=== PATIENT | female | born 1940 | race Caucasian/White ===

== ENCOUNTER 2016-07-28 13:38 | Inpatient (IN) | payer OTHER ==
[~2016-07-28] VITALS: Ht 166.4 cm; Wt 122.4 kg
[~2016-07-28 13:38] MED LIST: ACTOPLUS MET1 TABLET PO; BENICAR40 MG PO; CALCIUM 600 MG1 EAC1 PO; CELEBREX200 MG PO; CENTRUM SILVER1 EAC3 PO; CIPRO500 MG PO; FISH OIL 1,2001 EAC1 PO; FLAGYL500 MG PO; FLEXERIL10 MG PO; HYDROCHLOROTHIA25 MG PO; HYDROCODON-ACE1 EAC7 PO; IRON325 M1 PO; LASIX20 MG PO; LOVENOX40 MG/0.4 SC; NAPROXEN500 MG PO; NEXIUM40 MG PO; PRILOSEC40 MG PO; SENNA-TIME S T1 EACH PO; SIMVASTATIN40 MG PO; VESICARE10 MG PO; VICODIN 5-3001 EACH PO; VITAMIN B-125000 MCG SL; VITAMIN D35000 UNIT PO; VITAMIN D400 UNI1 PO; ZOFRAN ODT4 MG PO
[2016-07-28 14:28] LABS: HEMATOCRIT 37.8 % (36.0-46.0); MCV 90.6 FL (83-99); MEAN PLAT.VOLUME 10.7 uM^3 (9.5-12.4); PLATELET COUNT 189 K/uL (156-360); RBC DIS.WIDTH-SD 48.3 % (39-53); RED BLOOD COUNT 4.17 M/uL (3.80-5.20); WHITE BLOOD COUNT 7.4 K/uL (4.1-10.2)
[2016-07-28 14:46] LABS: CHLORIDE 108 mEq/L (99-109); POTASSIUM 4.2 mEq/L (3.7-5.4); SODIUM 141 mEq/L (136-147)
[2016-07-28 14:47] LABS: GLUCOSE 102 mg/dL (70-99)
[2016-07-28 14:49] LABS: ANION GAP 16 MEQ/L (2-14)
[2016-07-28 14:51] LABS: GFR ESTIMATE (CALCULATED) 47 mL/min/
[2016-07-28 14:52] LABS: UREA NITROGEN (BUN) 17 mg/dL (9-23)
[2016-07-28] MEDS ORDERED: ERGOCALCIF50000 UNIT PO (18:04)
[2016-07-28 22:47] VITALS: BP 85/55
[2016-07-28 23:20] VITALS: BP 105/68
[2016-07-29] VITALS (9 sets, daily range): BP systolic 89–127; BP diastolic 44–63
[2016-07-29 06:06] LABS: HEMATOCRIT 33.8 % (36.0-46.0); MCHC 31.4 G/DL (30.0-36.0); MCV 92.3 FL (83-99); RBC DIS.WIDTH-CV 15.5 % (11.8-14.6); RBC DIS.WIDTH-SD 52.5 % (39-53); RED BLOOD COUNT 3.66 M/uL (3.80-5.20); WHITE BLOOD COUNT 5.9 K/uL (4.1-10.2)
[2016-07-29 06:27] LABS: MEAN PLAT.VOLUME 11.3 uM^3 (9.5-12.4); PLATELET COUNT 186 K/uL (156-360)
[2016-07-29 06:48] LABS: ANION GAP 8 MEQ/L (2-14); CHLORIDE 106 MEQ/L (99-109); POTASSIUM 4.6 MEQ/L (3.7-5.4); SAMPLE HEMOLYSIS CHECK 0; SAMPLE ICTERIC CHECK 0; SAMPLE LIPEMIA CHECK 0; SODIUM 138 MEQ/L (136-147); TOTAL BILIRUBIN 0.5 MG/DL (0.0-1.0)
[2016-07-29 06:53] LABS: ALKALINE PHOSPHATASE 78 IU/L (3-129); GFR ESTIMATE (CALCULATED) 42 mL/min/; GLUCOSE 101 mg/dL (70-99); UREA NITROGEN (BUN) 19 mg/dL (9-23)
[2016-07-29 10:46] LABS: TROP-I INTERPRETATION NEGATIVE; TROPONIN-I 0.03 ng/mL (0.0-0.30)
[2016-07-29 16:34] LABS: ADD MIUA? NO; BILIRUBIN NEGATIVE; BLOOD NEGATIVE; COLOR YELLOW ((YELLOW)); GLUCOSE (STRIP) NEGATIVE; KETONES 5; LEUKOCYTES NEGATIVE; NITRITE NEGATIVE; PROTEIN (STRIP) NEGATIVE; SPECIFIC GRAVITY 1.008 (1.000-1.030); UCUL ADDED? NO; UROBILINOGEN 0.2 MG/DL (0.2-1.0)
[2016-07-29 18:22] LABS: POINT-OF-CARE METER ID UU14162513
[2016-07-29 22:18] LABS: POINT-OF-CARE METER ID UU14162508
[2016-07-30 03:56] VITALS: BP 103/53
[2016-07-30 08:20] VITALS: BP 99/52
[2016-07-30 10:02] LABS: EOSINOPHIL (%) 3.3 % (0-5); EOSINOPHIL COUNT 0.2 K/uL (0-0.3); HEMATOCRIT 32.9 % (36.0-46.0); IMMATURE GRANULOCYTE (%) 0.1 % (0.0-0.7); LYMPHOCYTE COUNT 1.4 K/uL (1.0-2.8); MCH 28.2 PG (29.0-34.0); MCHC 30.4 G/DL (30.0-36.0); MCV 92.7 FL (83-99); MONOCYTE (%) 9.9 % (3-12); MONOCYTE COUNT 0.7 K/uL (0-0.8); NEUTROPHIL (%) 67.6 % (45-76); NEUTROPHIL COUNT 4.9 K/uL (1.8-6.4); PLATELET COUNT 182 K/uL (156-360); RBC DIS.WIDTH-CV 15.5 % (11.8-14.6); RBC DIS.WIDTH-SD 53.2 % (39-53); RED BLOOD COUNT 3.55 M/uL (3.80-5.20); WHITE BLOOD COUNT 7.3 K/uL (4.1-10.2)
[2016-07-30 11:08] LABS: ANION GAP 6 MEQ/L (2-14); CHLORIDE 103 MEQ/L (99-109); POTASSIUM 4.9 MEQ/L (3.7-5.4); SAMPLE HEMOLYSIS CHECK 0; SAMPLE ICTERIC CHECK 0; SAMPLE LIPEMIA CHECK 0; SODIUM 133 MEQ/L (136-147)
[2016-07-30 11:15] LABS: GFR ESTIMATE (CALCULATED) 27 mL/min/; GLUCOSE 118 mg/dL (70-99); UREA NITROGEN (BUN) 25 mg/dL (9-23)
[2016-07-30 11:51] VITALS: BP 129/55
[2016-07-30 16:50] VITALS: BP 98/64
[2016-07-30 23:18] VITALS: BP 101/53
[2016-07-31 03:48] VITALS: BP 115/62
[2016-07-31 07:03] LABS: EOSINOPHIL (%) 4.8 % (0-5); EOSINOPHIL COUNT 0.3 K/uL (0-0.3); HEMATOCRIT 28.7 % (36.0-46.0); IMMATURE GRANULOCYTE (%) 0.2 % (0.0-0.7); LYMPHOCYTE COUNT 1.6 K/uL (1.0-2.8); MCH 29.3 PG (29.0-34.0); MCHC 32.1 G/DL (30.0-36.0); MCV 91.4 FL (83-99); MEAN PLAT.VOLUME 11.3 uM^3 (9.5-12.4); MONOCYTE (%) 11.8 % (3-12); MONOCYTE COUNT 0.7 K/uL (0-0.8); NEUTROPHIL (%) 56.8 % (45-76); NEUTROPHIL COUNT 3.6 K/uL (1.8-6.4); PLATELET COUNT 152 K/uL (156-360); RBC DIS.WIDTH-CV 15.5 % (11.8-14.6); RBC DIS.WIDTH-SD 52.1 % (39-53); RED BLOOD COUNT 3.14 M/uL (3.80-5.20); WHITE BLOOD COUNT 6.3 K/uL (4.1-10.2)
[2016-07-31 07:26] LABS: ANION GAP 8 MEQ/L (2-14); CHLORIDE 104 MEQ/L (99-109); GFR ESTIMATE (CALCULATED) 31 mL/min/; GLUCOSE 90 mg/dL (70-99); POTASSIUM 4.5 MEQ/L (3.7-5.4); SAMPLE HEMOLYSIS CHECK 0; SAMPLE ICTERIC CHECK 0; SAMPLE LIPEMIA CHECK 0; SODIUM 135 MEQ/L (136-147); UREA NITROGEN (BUN) 28 mg/dL (9-23)
[2016-07-31 08:19] VITALS: BP 135/67
[2016-07-31 12:14] VITALS: BP 120/57
[2016-07-31 14:50] VITALS: BP 126/58
[2016-07-31 17:48] LABS: UR CREATININE CONCENTRATION 27.6 MG/DL
[2016-08-01] VITALS: BP 108/53
[2016-08-01 07:40] LABS: MEAN PLAT.VOLUME 11.1 uM^3 (9.5-12.4); PLATELET COUNT 174 K/uL (156-360)
[2016-08-01 07:51] LABS: DELETE MACHINE DIFF? YES
[2016-08-01 08:14] VITALS: BP 102/52
[2016-08-01 08:16] LABS: ANION GAP 6 MEQ/L (2-14); CHLORIDE 106 MEQ/L (99-109); GFR ESTIMATE (CALCULATED) 42 mL/min/; POTASSIUM 4.6 MEQ/L (3.7-5.4); SAMPLE HEMOLYSIS CHECK 0; SAMPLE ICTERIC CHECK 0; SAMPLE LIPEMIA CHECK 0; SODIUM 136 MEQ/L (136-147); UREA NITROGEN (BUN) 27 mg/dL (9-23)
[2016-08-01 08:17] LABS: GLUCOSE 117 mg/dL (70-99)
[2016-08-01 08:55] LABS: ABS NEUTROPHIL COUNT 3.38; ANISOCYTOSIS 1+; EOSINOPHIL ABS CT 0.61; HEMATOCRIT 30.8 % (36.0-46.0); HYPOCHROMASIA 2+; MACROCYTES OCC; MCH 29.7 PG (29.0-34.0); MCHC 32.5 G/DL (30.0-36.0); MCV 91.4 FL (83-99); MICROCYTOSIS OCC; PLAT.SUFFICIENCY ADEQUATE; RBC DIS.WIDTH-CV 15.4 % (11.8-14.6); RBC DIS.WIDTH-SD 51.6 % (39-53); RED BLOOD COUNT 3.37 M/uL (3.80-5.20); SPHEROCYTES OCC; USER ID TLW; WHITE BLOOD COUNT 6.1 K/uL (4.1-10.2)
[2016-08-01 15:36] VITALS: BP 117/53
[2016-08-01 22:46] VITALS: BP 111/58
[2016-08-02 07:25] VITALS: BP 165/75
[2016-08-02 07:38] LABS: EOSINOPHIL (%) 9.1 % (0-5); EOSINOPHIL COUNT 0.5 K/uL (0-0.3); HEMATOCRIT 31.2 % (36.0-46.0); IMMATURE GRANULOCYTE (%) 0.2 % (0.0-0.7); LYMPHOCYTE COUNT 1.4 K/uL (1.0-2.8); MCH 29.7 PG (29.0-34.0); MCHC 32.1 G/DL (30.0-36.0); MCV 92.6 FL (83-99); MEAN PLAT.VOLUME 10.9 uM^3 (9.5-12.4); MONOCYTE (%) 10.3 % (3-12); MONOCYTE COUNT 0.6 K/uL (0-0.8); NEUTROPHIL (%) 55.3 % (45-76); NEUTROPHIL COUNT 3.2 K/uL (1.8-6.4); PLATELET COUNT 197 K/uL (156-360); RBC DIS.WIDTH-CV 15.4 % (11.8-14.6); RBC DIS.WIDTH-SD 52.6 % (39-53); RED BLOOD COUNT 3.37 M/uL (3.80-5.20); WHITE BLOOD COUNT 5.7 K/uL (4.1-10.2)
[2016-08-02 08:04] LABS: ANION GAP 8 MEQ/L (2-14); CHLORIDE 107 MEQ/L (99-109); GFR ESTIMATE (CALCULATED) 51 mL/min/; GLUCOSE 90 mg/dL (70-99); POTASSIUM 4.9 MEQ/L (3.7-5.4); SAMPLE HEMOLYSIS CHECK 0; SAMPLE ICTERIC CHECK 0; SAMPLE LIPEMIA CHECK 0; SODIUM 140 MEQ/L (136-147); UREA NITROGEN (BUN) 21 mg/dL (9-23)
[2016-08-02 11:49] VITALS: BP 118/55
[2016-08-02] MEDS ORDERED: TRAMADOL HCL50 MG PO ×2 (13:03→14:12)
[2016-08-02] MEDS ORDERED: NOVOLOG PE100 UNITS/ SQ (15:41)
[2016-08-02] MEDS ORDERED: LOVENOX40 MG/0.4 SC (15:42)
[2016-08-02] MEDS ORDERED: PRAVACHOL80 MG PO (15:43)
[2016-08-02] MEDS ORDERED: COZAAR100 MG PO (15:44)
[2016-08-02] MEDS ORDERED: GLUCOPHAGE1000 MG PO (15:45)
[2016-08-02] MEDS ORDERED: DILAUDID1 MG/ML IV (15:47)
[2016-08-02] MEDS ORDERED: FLEXERIL10 MG PO (15:51)
[2016-08-02] MEDS ORDERED: BENADRYL25 MG PO (15:52)
[2016-08-02] MEDS ORDERED: MILK OF MAGN PO (15:53)
[2016-08-02] MEDS ORDERED: TYLENOL REGULA325 MG PO (15:54)
[2016-08-02] MEDS ORDERED: ZOFRAN4 MG IV (15:55)
== END 2016-08-02 13:06 | DRG 312 ==
LOC: EME → EDBD 13:38 → 5WEST 21:13 → EDOF 21:13 → 5WEST 22:12 → 2EAST 07-29 14:16 → 5WEST 07-29 14:16 → 2EAST 07-29 19:25
PROVIDERS: Emergency Medicine; Internal Medicine; Physician Assistant Medical
PROC: 0PSFXZZ Reposition Right Humeral Shaft, External Approach (ICD-10-PCS; principal; 2016-07-28)
DX: I95.2 Hypotension due to drugs (principal); T40.605A Adverse effect of unspecified narcotics, initial encounter; S42.341A Displaced spiral fracture of shaft of humerus, right arm, initial encounter for closed fracture; J98.11 Atelectasis; I50.30 Unspecified diastolic (congestive) heart failure; E87.2 Acidosis; Z68.41 Body mass index [BMI] 40.0-44.9, adult; R09.02 Hypoxemia; W01.0XXA Fall on same level from slipping, tripping and stumbling without subsequent striking against object, initial encounter; I10 Essential (primary) hypertension; E78.5 Hyperlipidemia, unspecified; E11.40 Type 2 diabetes mellitus with diabetic neuropathy, unspecified; Z96.652 Presence of left artificial knee joint; E66.01 Morbid (severe) obesity due to excess calories; Z60.2 Problems related to living alone; Y92.018 Other place in single-family (private) house as the place of occurrence of the external cause; Z88.5 Allergy status to narcotic agent; Z87.891 Personal history of nicotine dependence
CPT/HCPCS: 71010; 71275; 73060; 80048; 80053; 80202; 81003; 82272; 82570; 82948; 83605; 83735; 83880; 83935; 84300; 84484; 85025; 85027; 85379; 87040; 87801; 89190; 93005; 93306; 93971; 94799; 97530 GP; 99281; 99285; G0378; J1170; J1650; J1815; J1940; J2270; J2405; J3010; J3370; J7030; J7040; J7050

== ENCOUNTER 2016-08-02 11:51 | Inpatient (IN) | payer OTHER ==
[~2016-08-02] VITALS: Ht 165.1 cm; Wt 122.8 kg
[~2016-08-02 11:51] MED LIST changes: +ERGOCALCIF50000 UNIT PO
[2016-08-02] MEDS ORDERED: TRAMADOL HCL50 MG PO ×2 (13:03→14:12)
[2016-08-02 15:19] VITALS: BP 130/62
[2016-08-02] MEDS ORDERED: NOVOLOG PE100 UNITS/ SQ (15:41)
[2016-08-02] MEDS ORDERED: LOVENOX40 MG/0.4 SC (15:42)
[2016-08-02] MEDS ORDERED: PRAVACHOL80 MG PO (15:43)
[2016-08-02] MEDS ORDERED: COZAAR100 MG PO (15:44)
[2016-08-02] MEDS ORDERED: GLUCOPHAGE1000 MG PO (15:45)
[2016-08-02] MEDS ORDERED: DILAUDID1 MG/ML IV (15:47)
[2016-08-02] MEDS ORDERED: FLEXERIL10 MG PO (15:51)
[2016-08-02] MEDS ORDERED: BENADRYL25 MG PO (15:52)
[2016-08-02] MEDS ORDERED: MILK OF MAGN PO (15:53)
[2016-08-02] MEDS ORDERED: TYLENOL REGULA325 MG PO (15:54)
[2016-08-02] MEDS ORDERED: ZOFRAN4 MG IV (15:55)
[2016-08-02 16:01] LABS: HEMATOCRIT 32.9 % (36.0-46.0); MCH 28.7 PG (29.0-34.0); MCV 92.7 FL (83-99); MEAN PLAT.VOLUME 10.2 uM^3 (9.5-12.4); PLATELET COUNT 208 K/uL (156-360); RBC DIS.WIDTH-CV 15.3 % (11.8-14.6); RBC DIS.WIDTH-SD 52.1 % (39-53); RED BLOOD COUNT 3.55 M/uL (3.80-5.20); WHITE BLOOD COUNT 5.6 K/uL (4.1-10.2)
[2016-08-02 16:33] LABS: ALKALINE PHOSPHATASE 75 IU/L (3-129); ANION GAP 6 MEQ/L (2-14); CHLORIDE 104 MEQ/L (99-109); GFR ESTIMATE (CALCULATED) 51 mL/min/; GLUCOSE 84 mg/dL (70-99); POTASSIUM 4.8 MEQ/L (3.7-5.4); SAMPLE HEMOLYSIS CHECK 0; SAMPLE ICTERIC CHECK 0; SAMPLE LIPEMIA CHECK 0; SODIUM 137 MEQ/L (136-147); TOTAL BILIRUBIN 0.4 MG/DL (0.0-1.0); UREA NITROGEN (BUN) 21 mg/dL (9-23)
[2016-08-02 16:44] LABS: POINT-OF-CARE METER ID UU13113720
[2016-08-02 20:52] LABS: POINT-OF-CARE METER ID UU13113720; POINT-OF-CARE USER ID 610211320
[2016-08-03 00:10] VITALS: BP 140/62
[2016-08-03 05:38] VITALS: BP 144/70
[2016-08-03 07:15] LABS: POINT-OF-CARE METER ID UU13113720; POINT-OF-CARE USER ID AHSSSJB31
[2016-08-03 11:40] LABS: POINT-OF-CARE METER ID UU13113720; POINT-OF-CARE USER ID AHSSSJB31
[2016-08-03 16:00] VITALS: BP 142/87
[2016-08-03 16:36] LABS: POINT-OF-CARE METER ID UU13113720
[2016-08-03 17:24] LABS: POINT-OF-CARE METER ID UU13113720
[2016-08-03 21:31] LABS: POINT-OF-CARE METER ID UU13113720
[2016-08-04 05:21] VITALS: BP 100/52
[2016-08-04 07:40] LABS: POINT-OF-CARE METER ID UU13113720
[2016-08-04 09:03] VITALS: BP 131/60
[2016-08-04 12:01] LABS: POINT-OF-CARE METER ID UU13113720
[2016-08-04 13:59] LABS: EOSINOPHIL (%) 7.1 % (0-5); EOSINOPHIL COUNT 0.5 K/uL (0-0.3); IMMATURE GRANULOCYTE (%) 0.3 % (0.0-0.7); LYMPHOCYTE COUNT 1.3 K/uL (1.0-2.8); MCH 28.3 PG (29.0-34.0); MCHC 30.9 G/DL (30.0-36.0); MCV 91.4 FL (83-99); MEAN PLAT.VOLUME 10.2 uM^3 (9.5-12.4); MONOCYTE (%) 8.3 % (3-12); MONOCYTE COUNT 0.6 K/uL (0-0.8); NEUTROPHIL (%) 64.9 % (45-76); NEUTROPHIL COUNT 4.3 K/uL (1.8-6.4); PLATELET COUNT 235 K/uL (156-360); RBC DIS.WIDTH-CV 15.4 % (11.8-14.6); RBC DIS.WIDTH-SD 52.3 % (39-53); RED BLOOD COUNT 3.61 M/uL (3.80-5.20); WHITE BLOOD COUNT 6.7 K/uL (4.1-10.2)
[2016-08-04 15:00] VITALS: BP 138/77
[2016-08-04 17:06] LABS: POINT-OF-CARE METER ID UU13113720
[2016-08-04 21:12] LABS: POINT-OF-CARE METER ID UU14174215; POINT-OF-CARE USER ID 610211320
[2016-08-05 05:47] VITALS: BP 139/65
[2016-08-05 08:13] LABS: POINT-OF-CARE METER ID UU13113720; POINT-OF-CARE USER ID AHSSSJB31
[2016-08-05 09:04] VITALS: BP 133/63
[2016-08-05 11:53] LABS: POINT-OF-CARE METER ID UU13113720; POINT-OF-CARE USER ID AHSSSJB31
[2016-08-05 14:56] LABS: Estimated Average Glucose 120 mg/dL (70-123); HEMOGLOBIN A1c (GLYCOHEMOGLOB) 5.8 % HGB (Below 5.7)
[2016-08-05 15:29] VITALS: BP 124/98
[2016-08-05 16:15] LABS: POINT-OF-CARE METER ID UU13113720
[2016-08-05 21:52] LABS: POINT-OF-CARE METER ID UU13113720
[2016-08-06 05:17] VITALS: BP 100/55
[2016-08-06 06:55] LABS: POINT-OF-CARE METER ID UU14174215; POINT-OF-CARE USER ID ENVGAF
[2016-08-06 11:31] LABS: POINT-OF-CARE METER ID UU14174215
[2016-08-06 16:28] VITALS: BP 151/58
[2016-08-06 17:21] LABS: POINT-OF-CARE METER ID UU14174215
[2016-08-06 21:24] LABS: POINT-OF-CARE METER ID UU14174215
[2016-08-07 04:53] VITALS: BP 101/53
[2016-08-07 06:48] LABS: POINT-OF-CARE METER ID UU13113720; POINT-OF-CARE USER ID ENVGAF
[2016-08-07 11:35] LABS: POINT-OF-CARE METER ID UU13113720
[2016-08-07 16:26] LABS: POINT-OF-CARE METER ID UU14174215
[2016-08-07 17:08] VITALS: BP 129/65
[2016-08-07 20:26] LABS: POINT-OF-CARE METER ID UU13113720
[2016-08-08 04:50] VITALS: BP 118/59
[2016-08-08 07:59] LABS: POINT-OF-CARE METER ID UU14174215
[2016-08-08 11:47] LABS: POINT-OF-CARE METER ID UU13113720; POINT-OF-CARE USER ID AHSSSJB31
[2016-08-08 15:57] VITALS: BP 178/80
[2016-08-08 16:58] LABS: POINT-OF-CARE METER ID UU13113720
[2016-08-08 20:53] LABS: POINT-OF-CARE METER ID UU13113720
[2016-08-09 04:53] VITALS: BP 121/58
[2016-08-09 07:30] LABS: POINT-OF-CARE METER ID UU13113720; POINT-OF-CARE USER ID AHSSSJB31
[2016-08-09 16:22] VITALS: BP 143/80
[2016-08-10 05:27] VITALS: BP 117/65
[2016-08-10 06:01] LABS: POINT-OF-CARE METER ID UU13113720; POINT-OF-CARE USER ID 610211320
[2016-08-10 15:01] VITALS: BP 122/88
[2016-08-11 05:11] VITALS: BP 118/60
[2016-08-11 05:36] LABS: HEMATOCRIT 31.9 % (36.0-46.0); MCH 29.2 PG (29.0-34.0); MCHC 31.3 G/DL (30.0-36.0); MEAN PLAT.VOLUME 10.3 uM^3 (9.5-12.4); PLATELET COUNT 204 K/uL (156-360); RBC DIS.WIDTH-CV 15.5 % (11.8-14.6); RBC DIS.WIDTH-SD 52.6 % (39-53); RED BLOOD COUNT 3.43 M/uL (3.80-5.20); WHITE BLOOD COUNT 5.3 K/uL (4.1-10.2)
[2016-08-11 05:57] LABS: POINT-OF-CARE METER ID UU14174215
[2016-08-11 06:00] LABS: ALKALINE PHOSPHATASE 85 IU/L (3-129); ANION GAP 8 MEQ/L (2-14); CHLORIDE 106 MEQ/L (99-109); GFR ESTIMATE (CALCULATED) 47 mL/min/; GLUCOSE 96 mg/dL (70-99); POTASSIUM 4.2 MEQ/L (3.7-5.4); SAMPLE HEMOLYSIS CHECK 0; SAMPLE ICTERIC CHECK 0; SAMPLE LIPEMIA CHECK 0; SODIUM 140 MEQ/L (136-147); TOTAL BILIRUBIN 0.4 MG/DL (0.0-1.0); UREA NITROGEN (BUN) 20 mg/dL (9-23)
[2016-08-11 13:05] VITALS: BP 127/72
[2016-08-11] MEDS ORDERED: CELECOXIB100 MG PO (20:32)
[2016-08-11] MEDS ORDERED: FLEXERIL10 MG PO (20:32)
[2016-08-11] MEDS ORDERED: ERGOCALCIF50000 UNIT PO (20:32)
[2016-08-11] MEDS ORDERED: TRAMADOL HCL50 MG PO (20:32)
[2016-08-11] MEDS ORDERED: SENNA PLUS TAB1 EACH PO (20:32)
[2016-08-12 05:46] VITALS: BP 125/60
[2016-08-12 06:27] LABS: POINT-OF-CARE METER ID UU14174215; POINT-OF-CARE USER ID 610211320
== END 2016-08-12 15:00 | disposition home health service (06) | DRG 560 ==
LOC: 3WEST 11:51
PROVIDERS: Physical Medicine & Rehabilitation Pain Medicine; Psychiatry & Neurology Neurology
PROC: F07M0ZZ Range of Motion and Joint Mobility Treatment of Musculoskeletal System - Whole Body (ICD-10-PCS; principal; 2016-08-02)
DX: S42.331D Displaced oblique fracture of shaft of humerus, right arm, subsequent encounter for fracture with routine healing (principal); Z68.42 Body mass index [BMI] 45.0-49.9, adult; Z48.89 Encounter for other specified surgical aftercare; S42.334 Nondisplaced oblique fracture of shaft of humerus, right arm; I95.9 Hypotension, unspecified; E11.42 Type 2 diabetes mellitus with diabetic polyneuropathy; E78.5 Hyperlipidemia, unspecified; W00.0XXD Fall on same level due to ice and snow, subsequent encounter; I10 Essential (primary) hypertension; K44.9 Diaphragmatic hernia without obstruction or gangrene; E66.01 Morbid (severe) obesity due to excess calories; E78.00 Pure hypercholesterolemia, unspecified; D64.9 Anemia, unspecified; M62.81 Muscle weakness (generalized); I51.7 Cardiomegaly; Z96.652 Presence of left artificial knee joint; Z79.84 Long term (current) use of oral hypoglycemic drugs; Z80.9 Family history of malignant neoplasm, unspecified
CPT/HCPCS: 71020; 73030; 73060; 80053; 82948; 83036; 85025; 85027; 97110 GO; 97530 GP; J1650; J1815